=== PATIENT | male | born 1945 | race Hispanic/Latino ===

== ENCOUNTER 2017-11-05 08:22 | Day surgery (SDC) | payer OTHER ==
[~2017-11-05] VITALS: Ht 175.3 cm; Wt 81.9 kg
[~2017-11-05 08:22] MED LIST: ACET-2247 PO; ASPI-1197 PO; ATOR10 PO; DICL4100G TP; FISH1CAP49 PO; MULT-1289 PO; PANT40TA25 PO; SODIUM CHLORIDE 0.9% 1000ML 1,000 ML IV ONE
[2017-11-05 08:45] VITALS: BP 140/82
[2017-11-05] MEDS ORDERED: GARL1000 PO (09:08)
[2017-11-05] MEDS ORDERED: PROPOFOL 10 MG/ML 20ML VIAL IV ONE (09:17)
[2017-11-05 09:33] VITALS: BP 102/56
== END 2017-11-05 10:10 | disposition home or self-care (01) ==
LOC: ENDO 08:22 → DAH 08:22 → ENDO 10:10
PROVIDERS: ATTEND Internal Medicine Gastroenterology
DX: K22.70 Barrett's esophagus without dysplasia (principal); Z86.73 Personal history of transient ischemic attack (TIA), and cerebral infarction without residual deficits; K21.9 Gastro-esophageal reflux disease without esophagitis; Z86.010 Personal history of colon polyps; Z79.899 Other long term (current) drug therapy; Z68.35 Body mass index [BMI] 35.0-35.9, adult; Z98.890 Other specified postprocedural states
CPT/HCPCS: 43239; 88305; 88312; A4606; J2704; J7030

== ENCOUNTER 2020-09-21 06:00 | Inpatient (IN) | payer OTHER ==
[2020-09-17 09:30] LABS: BASOPHILS % (AUTO) 0.8 % (0.0-5.0); EOSINOPHILS % (AUTO) 2.5 % (0.0-8.0); HEMATOCRIT 43.3 % (42-54); LYMPHOCYTES % (AUTO) 47.1 % (21.0-51.0); MEAN CORPUSCULAR HEMOGLOBIN 29.2 pg (27.0-33.0); MEAN CORPUSCULAR HGB CONC 32.8 g/dL (32.0-36.0); MEAN CORPUSCULAR VOLUME 88.9 fL (79-99); MONOCYTES % (AUTO) 9.3 % (3.0-13.0); NEUTROPHILS % (AUTO) 40.1 % (40.0-77.0); PLATELET COUNT (AUTO) 189 K/uL (130-400); RED BLOOD CELL COUNT(AUTO) 4.87 MIL/uL (4.50-6.20); RED CELL DISTRIBUTION WIDTH 12.6 % (11.0-15.5); WHITE BLOOD COUNT (AUTO) 4.8 K/uL (4.8-10.8)
[2020-09-17 09:31] LABS: APPEARANCE,URINE Clear (CLEAR); BILIRUBIN,URINE Negative (NEGATIVE); COLOR,URINE Yellow (YELLOW); GLUCOSE, URINE (UA) Negative (NEGATIVE); KETONES,URINE Negative (NEGATIVE); LEUKOCYTE ESTERASE ,URINE Negative (NEGATIVE); NITRATE,URINE Negative (NEGATIVE); OCCULT BLOOD,URINE Negative (NEGATIVE); PROTEIN,URINE Negative (NEGATIVE); UROBILINOGEN,URINE 0.2 mg/dL (0.2-1.0)
[2020-09-17 09:39] LABS: CREATININE 1.1 mg/dL (0.5-1.5); POTASSIUM 4.3 mmol/L (3.5-5.1)
[2020-09-17 09:42] LABS: INR 1.11 (0.85-1.15)
[2020-09-17 09:44] LABS: PARTIAL THROMBOPLASTIN TIME 32.1 SEC (26.3-35.5)
[~2020-09-21] VITALS: Ht 172.7 cm; Wt 86.2 kg
[2020-09-21] VITALS (8 sets, daily range): BP systolic 95–165; BP diastolic 39–84
[~2020-09-21 06:00] MED LIST changes: -ACET-2247 PO; +ACET-66 PO; -ASPI-1197 PO; -ATOR10 PO; +CYAN500T9 PO; -DICL4100G TP; +FINA5TAB41 PO; -FISH1CAP49 PO; +LISI10TA24 PO; -MULT-1289 PO; -PANT40TA25 PO; +PANT40TA54 PO; +RIVA20TA PO; +ROSU40TA21 PO; -SODIUM CHLORIDE 0.9% 1000ML 1,000 ML IV ONE
[2020-09-21] MEDS ORDERED: 0.9%NACL 1000ML 1,000 ML IV ONE (07:41)
[2020-09-21] MEDS ORDERED: BIVALIRUDIN 250 MG/VIAL IV ONE (09:50)
[2020-09-21] MEDS ORDERED: NITROGLYCERIN 2 MG VIAL IV ONE (09:50)
[2020-09-21] MEDS ORDERED: IOHEXOL 350 MG/ML 100ML INFUS..BTL IV ONE (09:50)
[2020-09-21] MEDS ORDERED: IOHEXOL-350 50ML VIAL IV ONE (09:50)
[2020-09-21] MEDS ORDERED: LIDOCAINE HCL 400MG/20ML VIAL ONE (09:51)
[2020-09-21] MEDS ORDERED: FENTANYL CITRATE PF 50 MCG/1 ML 2ML VIAL ONE (10:47)
[2020-09-21] MEDS ORDERED: HEPARIN 25,000 UNITS/250ML D5W 250 ML IV ONE (12:25)
[2020-09-21] MEDS ORDERED: HEPARIN 10,000 UNIT/10ML (1,000 UNIT/ML) VIAL ONE ×3 (12:26→18:38)
[2020-09-21] MEDS ORDERED: NITROGLYCERIN 50MG/D5W 250ML 1 BOT ONE ×2 (12:41→16:51)
[2020-09-21] MEDS ORDERED: 0.9%NACL 1000ML 1,000 ML IV SCH ×2 (12:45→20:45)
[2020-09-21] MEDS ORDERED: HEPARIN 25,000 UNITS/250ML D5W 250 ML IV SCH (12:45)
[2020-09-21] MEDS ORDERED: NITROGLYCERIN 50MG/D5W 250ML 250 BOT IV SCH ×2 (12:45→20:45)
[2020-09-21] MEDS ORDERED: CEFAZOLIN SODIUM 1 GM VIAL IVP PRN (13:45)
[2020-09-21 16:04] LABS: HEMATOCRIT 39.1 % (42-54); MEAN CORPUSCULAR HEMOGLOBIN 29.2 pg (27.0-33.0); MEAN CORPUSCULAR HGB CONC 33.5 g/dL (32.0-36.0); MEAN CORPUSCULAR VOLUME 87.1 fL (79-99); RED BLOOD CELL COUNT(AUTO) 4.49 MIL/uL (4.50-6.20); RED CELL DISTRIBUTION WIDTH 12.8 % (11.0-15.5); WHITE BLOOD COUNT (AUTO) 6.4 K/uL (4.8-10.8)
[2020-09-21 16:17] LABS: HEMOGLOBIN A1C 6.6 % (4.0-6.0)
[2020-09-21 16:21] LABS: INR 1.06 (0.85-1.15); PROTHROMBIN TIME 11.5 SEC (9.6-11.6)
[2020-09-21 16:24] LABS: ALBUMIN 3.6 g/dL (3.5-5.0); BILIRUBIN,TOTAL 0.6 mg/dL (0.2-1.0); POTASSIUM 3.9 mmol/L (3.5-5.1); TOTAL PROTEIN, SERUM 7.1 g/dL (6.0-8.3)
[2020-09-21] MEDS ORDERED: AMINOCAPROIC ACID 5,000MG VIAL 15,000 MG in 0.9% NACL 500ML IV.SOLN 420 ML IV PRN (16:45)
[2020-09-21] MEDS ORDERED: NOREPINEPHRINE BITARTRATE 8 MG in DEXTROSE 5%-WATER 250 ML IV PRN (16:45)
[2020-09-21] MEDS ORDERED: EPINEPHRINE PF 1MG AMP 10 MG in 0.9% NACL 250ML 240 ML IV PRN (16:45)
[2020-09-21] MEDS ORDERED: CEFAZOLIN SODIUM 1 GM VIAL ONE (16:52)
[2020-09-21] MEDS ORDERED: PAPAVERINE HCL 30 MG/ML 2ML VIAL ONE (16:53)
[2020-09-21 16:58] LABS: PARTIAL THROMBOPLASTIN TIME > 139.0 SEC (26.3-35.5)
[2020-09-21] MEDS ORDERED: NOREPINEPHRINE BITARTRATE 1 MG/1 ML ML IV ONE (18:11)
[2020-09-21] MEDS ORDERED: MIDAZOLAM HCL 1 MG/ML 2ML VIAL ONE (18:11)
[2020-09-21] MEDS ORDERED: FENTANYL CITRATE PF 50 MCG/1 ML 20ML VIAL IJ ONE (18:11)
[2020-09-21] MEDS ORDERED: PROPOFOL 10 MG/ML 20ML VIAL IV ONE (18:11)
[2020-09-21] MEDS ORDERED: ESMOLOL HCL 10 MG/ML 10 ML VIAL ONE (18:11)
[2020-09-21] MEDS ORDERED: PROTAMINE SULFATE 10 MG/ML 25ML VIAL IV ONE (18:11)
[2020-09-21] MEDS ORDERED: EPINEPHRINE PF 1MG AMP ONE (18:11)
[2020-09-21] MEDS ORDERED: AMINOCAPROIC ACID 5,000MG VIAL ONE (18:11)
[2020-09-21] MEDS ORDERED: LIDOCAINE PF 100MG/5ML (2%) SYRINGE 5ML ONE (18:11)
[2020-09-21] MEDS ORDERED: SODIUM BICARB 50MEQ 50ML VIAL 150 ML ONE (18:11)
[2020-09-21] MEDS ORDERED: ROCURONIUM 10MG/1ML SYR 10 MG/ML ML ONE (18:12)
[2020-09-21] MEDS ORDERED: AMIODARONE 150MG VIAL ONE (18:34)
[2020-09-21 18:48] LABS: ABG BASE EXCESS -1.8 mmol/L (-2.0-3.0); ABG HCO3 23.1 mmol/L (21.0-28.0); ABG OXYGEN SATURATION 99.2 % (95.0-99.0); ABG PCO2 40 mmHg (35-48)
[2020-09-21 19:35] LABS: ABG BASE EXCESS 1.6 mmol/L (-2.0-3.0); ABG HCO3 26.5 mmol/L (21.0-28.0); ABG OXYGEN SATURATION 99.3 % (95.0-99.0); ABG PCO2 43 mmHg (35-48)
[2020-09-21] MEDS ORDERED: POTASSIUM CHLORIDE 20MEQ/100ML 300 ML IV ONE (19:37)
[2020-09-21] MEDS ORDERED: PHARMACY COMMUNICATION MISC SCH (20:15)
[2020-09-21 20:23] LABS: ABG BASE EXCESS -6.1 mmol/L (-2.0-3.0); ABG HCO3 19.1 mmol/L (21.0-28.0); ABG PCO2 37 mmHg (35-48)
[2020-09-21] MEDS ORDERED: ATROPINE 1MG SYG IVP ONE (20:25)
[2020-09-21] MEDS ORDERED: SODIUM BICARB 50MEQ 50ML VIAL 250 ML ONE (20:29)
[2020-09-21] MEDS ORDERED: INSULIN REGULAR, HUMAN 3ML 100 UNIT in 0.9%NACL 100ML 99 ML IV SCH ×2 (20:45)
[2020-09-21] MEDS ORDERED: EPINEPHRINE PF 1MG AMP 10 MG in DEXTROSE 5%-WATER 250 ML IV PRN (20:45)
[2020-09-21] MEDS ORDERED: ACETAMINOPHEN 650 MG SUPPOSITORY RC PRN (20:45)
[2020-09-21] MEDS ORDERED: DEXTROSE 50%-WATER 50 ML DISP.SYRIN IV PRN (20:45)
[2020-09-21] MEDS ORDERED: MORPHINE 2 MG SYG IV PRN (20:45)
[2020-09-21] MEDS ORDERED: AMINOCAPROIC ACID 5,000MG VIAL 15,000 MG in 0.9% NACL 250ML 250 ML IV SCH (20:45)
[2020-09-21] MEDS ORDERED: GLUCAGON 1MG KIT 1 MG ML IM PRN (20:45)
[2020-09-21] MEDS ORDERED: CALCIUM GLUC 1GM 1 GM in 0.9%NACL 50ML 50 ML IV PRN (20:45)
[2020-09-21] MEDS ORDERED: ALBUMIN (HUMAN) 5% 250 ML IV PRN (20:45)
[2020-09-21] MEDS ORDERED: 0.9%NACL 10ML VIAL IVP PRN (20:45)
[2020-09-21] MEDS ORDERED: NOREPINEPHRIN 4MG/NS 250ML 250 ML IV PRN (20:45)
[2020-09-21] MEDS ORDERED: PROPOFOL 1000 MG/100 ML 100 ML IV PRN (20:45)
[2020-09-21] MEDS ORDERED: POTASSIUM PHOS 15 mMOL+NS250ML 250 ML IV PRN (20:45)
[2020-09-21] MEDS ORDERED: ACETAMINOPHEN 325 MG TAB PO PRN (20:45)
[2020-09-21] MEDS ORDERED: 0.9% NACL 500ML IV.SOLN 500 ML IV SCH (20:45)
[2020-09-21] MEDS ORDERED: PROPOFOL 1000 MG/100 ML 100 ML IV ONE (21:02)
[2020-09-21 21:46] LABS: HEMATOCRIT 36.9 % (42-54); MEAN CORPUSCULAR HEMOGLOBIN 29.4 pg (27.0-33.0); MEAN CORPUSCULAR HGB CONC 33.6 g/dL (32.0-36.0); MEAN CORPUSCULAR VOLUME 87.4 fL (79-99); RED BLOOD CELL COUNT(AUTO) 4.22 MIL/uL (4.50-6.20); RED CELL DISTRIBUTION WIDTH 12.8 % (11.0-15.5); WHITE BLOOD COUNT (AUTO) 19.4 K/uL (4.8-10.8)
[2020-09-21 21:52] LABS: ABG BASE EXCESS -5.1 mmol/L (-2.0-3.0); ABG HCO3 20.6 mmol/L (21.0-28.0); ABG OXYGEN SATURATION 98.8 % (95.0-99.0); ABG PCO2 41 mmHg (35-48)
[2020-09-21 22:02] LABS: CREATININE 1.1 mg/dL (0.5-1.5); INR 1.13 (0.85-1.15); MAGNESIUM 1.3 mg/dL (1.80-2.40); PHOSPHORUS 4.3 mg/dL (2.5-4.9); POTASSIUM 3.7 mmol/L (3.5-5.1); PROTHROMBIN TIME 12.2 SEC (9.6-11.6)
[2020-09-21 22:04] LABS: PARTIAL THROMBOPLASTIN TIME 21.9 SEC (26.3-35.5)
[2020-09-21] MEDS: SODIUM BICARB 50MEQ 50ML VIAL IV PRN (22:09)
[2020-09-21] MEDS ORDERED: ALBUMIN (HUMAN) 5% 250 ML IV ONE ×2 (23:04→23:15)
[2020-09-21 23:06] LABS: ABG BASE EXCESS 2.9 mmol/L (-2.0-3.0); ABG HCO3 29.5 mmol/L (21.0-28.0); ABG OXYGEN SATURATION 98.5 % (95.0-99.0); ABG PCO2 54 mmHg (35-48)
[2020-09-21] MEDS ORDERED: CALCIUM GLUC 1GM/10ML VIAL IV ONE (23:10)
[2020-09-21] MEDS: MORPHINE 2 MG SYG IV PRN (23:35)
[2020-09-22] VITALS (37 sets, daily range): BP systolic 67–148; BP diastolic 39–107
[2020-09-22] MEDS: FAMOTIDINE 20MG VIAL IV SCH ×3 (00:03→21:09)
[2020-09-22] MEDS: MORPHINE 2 MG SYG IV PRN ×3 (00:30→01:30)
[2020-09-22 00:47] LABS: ABG BASE EXCESS -5.2 mmol/L (-2.0-3.0); ABG HCO3 20.8 mmol/L (21.0-28.0); ABG OXYGEN SATURATION 98.1 % (95.0-99.0); ABG PCO2 42 mmHg (35-48)
[2020-09-22] MEDS: SODIUM BICARB 50MEQ 50ML VIAL IV PRN ×2 (00:59→02:24)
[2020-09-22] MEDS: POTASSIUM CHLORIDE 20MEQ/100ML 100 ML IV PRN ×4 (01:04→06:08)
[2020-09-22 02:01] LABS: ABG BASE EXCESS -0.7 mmol/L (-2.0-3.0); ABG PCO2 40 mmHg (35-48)
[2020-09-22] MEDS ORDERED: CALCIUM GLUC 1GM/10ML VIAL IV ONE ×2 (02:11→04:01)
[2020-09-22] MEDS: CEFAZOLIN SODIUM 1 GM VIAL IV SCH ×3 (02:16→17:49)
[2020-09-22 03:43] LABS: ABG BASE EXCESS 0.6 mmol/L (-2.0-3.0); ABG HCO3 24.6 mmol/L (21.0-28.0); ABG OXYGEN SATURATION 98.2 % (95.0-99.0); ABG PCO2 37 mmHg (35-48)
[2020-09-22 03:53] LABS: MEAN CORPUSCULAR HEMOGLOBIN 29.2 pg (27.0-33.0); MEAN CORPUSCULAR HGB CONC 33.4 g/dL (32.0-36.0); MEAN CORPUSCULAR VOLUME 87.4 fL (79-99); RED BLOOD CELL COUNT(AUTO) 3.66 MIL/uL (4.50-6.20); RED CELL DISTRIBUTION WIDTH 13.1 % (11.0-15.5); WHITE BLOOD COUNT (AUTO) 14.1 K/uL (4.8-10.8)
[2020-09-22 04:05] LABS: CREATININE 1.4 mg/dL (0.5-1.5); MAGNESIUM 1.4 mg/dL (1.80-2.40); PHOSPHORUS 1.1 mg/dL (2.5-4.9); POTASSIUM 3.7 mmol/L (3.5-5.1)
[2020-09-22 04:12] LABS: INR 1.11 (0.85-1.15)
[2020-09-22 04:13] LABS: PARTIAL THROMBOPLASTIN TIME 21.9 SEC (26.3-35.5)
[2020-09-22] MEDS: TRAMADOL HCL 50 MG TABLET PO PRN ×2 (07:36→15:15)
[2020-09-22 07:40] LABS: ABG BASE EXCESS 3.2 mmol/L (-2.0-3.0); ABG HCO3 28.3 mmol/L (21.0-28.0); ABG OXYGEN SATURATION 97.7 % (95.0-99.0); ABG PCO2 45 mmHg (35-48)
[2020-09-22] MEDS ORDERED: FUROSEMIDE 20MG VIAL IV SCH (09:00)
[2020-09-22] MEDS ORDERED: LISINOPRIL 10 MG TABLET PO SCH (09:00)
[2020-09-22] MEDS ORDERED: PANTOPRAZOLE 40 MG TAB DR PO SCH (09:00)
[2020-09-22] MEDS ORDERED: ASPIRIN 81MG CHEW TAB PO SCH (09:00)
[2020-09-22] MEDS: FUROSEMIDE 20 MG TABLET PO SCH ×2 (10:37→17:49)
[2020-09-22] MEDS: ATORVASTATIN 40 MG TABLET PO SCH (10:37)
[2020-09-22] MEDS: ASPIRIN 325MG EC TAB PO SCH (10:37)
[2020-09-22] MEDS: FINASTERIDE 5 MG TABLET PO SCH (10:37)
[2020-09-22] MEDS: ONDANSETRON 4MG INJ IV PRN (10:53)
[2020-09-22] MEDS: MAGNESIUM 2GM PREMIX 50ML 50 ML IV PRN ×2 (11:19→12:29)
[2020-09-22 11:30] LABS: CREATININE 1.2 mg/dL (0.5-1.5); MAGNESIUM 1.3 mg/dL (1.80-2.40); PHOSPHORUS 3.8 mg/dL (2.5-4.9); POTASSIUM 4.4 mmol/L (3.5-5.1)
[2020-09-23] VITALS (16 sets, daily range): BP systolic 84–147; BP diastolic 51–75
[2020-09-23] MEDS: TRAMADOL HCL 50 MG TABLET PO PRN ×3 (02:28→09:57)
[2020-09-23 03:42] LABS: MEAN CORPUSCULAR HEMOGLOBIN 29.1 pg (27.0-33.0); MEAN CORPUSCULAR HGB CONC 32.6 g/dL (32.0-36.0); RED BLOOD CELL COUNT(AUTO) 3.82 MIL/uL (4.50-6.20); RED CELL DISTRIBUTION WIDTH 13.3 % (11.0-15.5); WHITE BLOOD COUNT (AUTO) 15.7 K/uL (4.8-10.8)
[2020-09-23 03:52] LABS: CREATININE 1.3 mg/dL (0.5-1.5); POTASSIUM 4.4 mmol/L (3.5-5.1)
[2020-09-23] MEDS: ATORVASTATIN 40 MG TABLET PO SCH (08:28)
[2020-09-23] MEDS: ASPIRIN 325MG EC TAB PO SCH (08:29)
[2020-09-23] MEDS: FUROSEMIDE 20 MG TABLET PO SCH ×2 (08:29→11:24)
[2020-09-23] MEDS: FINASTERIDE 5 MG TABLET PO SCH (08:29)
[2020-09-23] MEDS ORDERED: METOPROLOL TARTRATE 25 MG TAB PO SCH (09:00)
[2020-09-23] MEDS ORDERED: FUROSEMIDE 20 MG TABLET PO SCH (09:00)
[2020-09-23] MEDS: ENOXAPARIN SODIUM 30 MG/0.3 ML SQ SCH (09:55)
[2020-09-23] MEDS: METOPROLOL TARTRATE 25 MG TAB PO SCH ×2 (11:22→20:42)
[2020-09-23] MEDS ORDERED: POLYETHYLENE GLYCOL 3350 17 GM POWD.PACK PO SCH (17:00)
[2020-09-24] VITALS (8 sets, daily range): BP systolic 110–130; BP diastolic 65–84
[2020-09-24] MEDS: TRAMADOL HCL 50 MG TABLET PO PRN (01:47)
[2020-09-24] MEDS: ONDANSETRON 4MG INJ IV PRN (03:36)
[2020-09-24 03:42] LABS: HEMATOCRIT 29.9 % (42-54); MEAN CORPUSCULAR HEMOGLOBIN 29.6 pg (27.0-33.0); MEAN CORPUSCULAR HGB CONC 33.4 g/dL (32.0-36.0); MEAN CORPUSCULAR VOLUME 88.5 fL (79-99); PLATELET COUNT (AUTO) 123 K/uL (130-400); RED BLOOD CELL COUNT(AUTO) 3.38 MIL/uL (4.50-6.20); RED CELL DISTRIBUTION WIDTH 13.1 % (11.0-15.5); WHITE BLOOD COUNT (AUTO) 9.8 K/uL (4.8-10.8)
[2020-09-24 03:53] LABS: CREATININE 1.3 mg/dL (0.5-1.5); POTASSIUM 4.1 mmol/L (3.5-5.1)
[2020-09-24 06:00] LABS: BASOPHILS % (AUTO) 0.2 % (0.0-5.0); EOSINOPHILS % (AUTO) 2.3 % (0.0-8.0); LYMPHOCYTES % (AUTO) 10.7 % (21.0-51.0); NEUTROPHILS % (AUTO) 79.3 % (40.0-77.0)
[2020-09-24] MEDS: ENOXAPARIN SODIUM 30 MG/0.3 ML SQ SCH (08:42)
[2020-09-24] MEDS: FUROSEMIDE 20 MG TABLET PO SCH (08:43)
[2020-09-24] MEDS: METOPROLOL TARTRATE 25 MG TAB PO SCH ×2 (08:43→20:38)
[2020-09-24] MEDS: ATORVASTATIN 40 MG TABLET PO SCH (08:43)
[2020-09-24] MEDS: FINASTERIDE 5 MG TABLET PO SCH (08:43)
[2020-09-24] MEDS: ASPIRIN 325MG EC TAB PO SCH (08:44)
[2020-09-24] MEDS: DOCUSATE SODIUM 100 MG CAP PO SCH ×2 (13:45→20:38)
[2020-09-24] MEDS: METOCLOPRAMIDE 10 MG/2 ML VIAL IVP SCH ×3 (13:45→23:08)
[2020-09-24] MEDS ORDERED: POLYETHYLENE GLYCOL 3350 17 GM POWD.PACK PO SCH (17:00)
[2020-09-25] VITALS (12 sets, daily range): BP systolic 108–130; BP diastolic 54–77
[2020-09-25 06:01] LABS: BASOPHILS % (AUTO) 0.2 % (0.0-5.0); EOSINOPHILS % (AUTO) 0.2 % (0.0-8.0); HEMATOCRIT 30.4 % (42-54); LYMPHOCYTES % (AUTO) 25.7 % (21.0-51.0); MEAN CORPUSCULAR HEMOGLOBIN 28.2 pg (27.0-33.0); MEAN CORPUSCULAR HGB CONC 32.2 g/dL (32.0-36.0); MEAN CORPUSCULAR VOLUME 87.6 fL (79-99); MONOCYTES % (AUTO) 13.2 % (3.0-13.0); NEUTROPHILS % (AUTO) 60.4 % (40.0-77.0); PLATELET COUNT (AUTO) 182 K/uL (130-400); RED BLOOD CELL COUNT(AUTO) 3.47 MIL/uL (4.50-6.20); RED CELL DISTRIBUTION WIDTH 12.8 % (11.0-15.5)
[2020-09-25 06:08] LABS: CREATININE 1.1 mg/dL (0.5-1.5); POTASSIUM 3.2 mmol/L (3.5-5.1)
[2020-09-25] MEDS: METOCLOPRAMIDE 10 MG/2 ML VIAL IVP SCH ×3 (07:12→17:48)
[2020-09-25] MEDS: POTASSIUM CHLORIDE 20MEQ/100ML 100 ML IV PRN (09:39)
[2020-09-25] MEDS: ENOXAPARIN SODIUM 30 MG/0.3 ML SQ SCH (09:39)
[2020-09-25] MEDS: FUROSEMIDE 20 MG TABLET PO SCH ×2 (09:40→20:19)
[2020-09-25] MEDS: FINASTERIDE 5 MG TABLET PO SCH (09:41)
[2020-09-25] MEDS: ASPIRIN 325MG EC TAB PO SCH (09:41)
[2020-09-25] MEDS: METOPROLOL TARTRATE 25 MG TAB PO SCH ×2 (09:41→20:18)
[2020-09-25] MEDS: DOCUSATE SODIUM 100 MG CAP PO SCH ×2 (09:41→20:21)
[2020-09-25] MEDS: ATORVASTATIN 40 MG TABLET PO SCH (09:41)
[2020-09-25] MEDS ORDERED: KCL 20 MEQ ERTAB PO SCH (10:15)
[2020-09-25 14:10] LABS: CREATININE 1.1 mg/dL (0.5-1.5); POTASSIUM 3.6 mmol/L (3.5-5.1)
[2020-09-25] MEDS ORDERED: POTASSIUM CHLORIDE 10% ELIXIR 20 MEQ/15 ML UDCUP PO PRN (20:15)
[2020-09-25] MEDS ORDERED: POTASSIUM CHLORIDE 20MEQ/100ML 100 ML IV PRN (20:15)
[2020-09-25] MEDS ORDERED: LIDOCAINE HCL-MPF 1% 2ML VIAL IV PRN (20:15)
[2020-09-25] MEDS ORDERED: KCL 20 MEQ ERTAB PO ONE (20:16)
[2020-09-26 02:00] VITALS: BP 126/76
[2020-09-26 03:00] VITALS: BP_SYST 130; BP_SYST 180; BP_DIAS 77
[2020-09-26 03:59] LABS: POTASSIUM 3.5 mmol/L (3.5-5.1)
[2020-09-26] MEDS: KCL 20 MEQ ERTAB PO PRN ×2 (04:50→06:37)
[2020-09-26 05:00] VITALS: BP 129/54
[2020-09-26 06:00] LABS: BASOPHILS % (AUTO) 0.1 % (0.0-5.0); EOSINOPHILS % (AUTO) 0.1 % (0.0-8.0); HEMATOCRIT 29.1 % (42-54); LYMPHOCYTES % (AUTO) 20.4 % (21.0-51.0); MEAN CORPUSCULAR HEMOGLOBIN 29.1 pg (27.0-33.0); MEAN CORPUSCULAR VOLUME 85.6 fL (79-99); MONOCYTES % (AUTO) 13.2 % (3.0-13.0); PLATELET COUNT (AUTO) 202 K/uL (130-400); RED CELL DISTRIBUTION WIDTH 12.6 % (11.0-15.5)
[2020-09-26 08:00] VITALS: BP 129/69
[2020-09-26] MEDS: ASPIRIN 325MG EC TAB PO SCH (08:53)
[2020-09-26] MEDS: ATORVASTATIN 40 MG TABLET PO SCH (08:53)
[2020-09-26] MEDS: ENOXAPARIN SODIUM 30 MG/0.3 ML SQ SCH ×2 (08:53→09:59)
[2020-09-26] MEDS: FUROSEMIDE 20 MG TABLET PO SCH (08:54)
[2020-09-26] MEDS: DOCUSATE SODIUM 100 MG CAP PO SCH (08:54)
[2020-09-26] MEDS: FINASTERIDE 5 MG TABLET PO SCH (08:54)
[2020-09-26] MEDS: METOPROLOL TARTRATE 25 MG TAB PO SCH (08:54)
[2020-09-26] MEDS ORDERED: AEC81 PO (10:08)
[2020-09-26] MEDS ORDERED: METO25 PO (10:09)
[2020-09-26] MEDS ORDERED: FURO20TA6 PO (10:09)
[2020-09-26] MEDS ORDERED: KCL 20 MEQ ERTAB PO SCH (10:42)
[2020-09-26 12:00] VITALS: BP 136/79
[2020-09-26] MEDS ORDERED: POTA-79 PO (12:45)
[2020-09-26 14:30] VITALS: BP 130/74
== END 2020-09-26 15:48 | disposition home or self-care (01) | DRG 234 ==
LOC: DAH 06:00 → DAHIP 06:01 → DAH 06:01 → 2CH 15:15
PROVIDERS: ADMIT Internal Medicine; ATTEND Internal Medicine
PROC: 06BQ4ZZ Excision of Left Saphenous Vein, Percutaneous Endoscopic Approach (ICD-10-PCS; 2020-09-21)
PROC: 06BP4ZZ Excision of Right Saphenous Vein, Percutaneous Endoscopic Approach (ICD-10-PCS; 2020-09-21)
PROC: 5A02110 Assistance with Cardiac Output using Balloon Pump, Intermittent (ICD-10-PCS; 2020-09-21)
PROC: B2111ZZ Fluoroscopy of Multiple Coronary Arteries using Low Osmolar Contrast (ICD-10-PCS; 2020-09-21)
PROC: B2151ZZ Fluoroscopy of Left Heart using Low Osmolar Contrast (ICD-10-PCS; 2020-09-21)
PROC: 4A023N7 Measurement of Cardiac Sampling and Pressure, Left Heart, Percutaneous Approach (ICD-10-PCS; principal; 2020-09-21 18:12)
PROC: 02100Z9 Bypass Coronary Artery, One Artery from Left Internal Mammary, Open Approach (ICD-10-PCS; 2020-09-21 18:12)
PROC: 021109W Bypass Coronary Artery, Two Arteries from Aorta with Autologous Venous Tissue, Open Approach (ICD-10-PCS; 2020-09-21 18:12)
DX: I25.10 Atherosclerotic heart disease of native coronary artery without angina pectoris (principal); D68.59 Other primary thrombophilia; J90 Pleural effusion, not elsewhere classified; I48.0 Paroxysmal atrial fibrillation; E78.00 Pure hypercholesterolemia, unspecified; E11.9 Type 2 diabetes mellitus without complications; I10 Essential (primary) hypertension; K21.9 Gastro-esophageal reflux disease without esophagitis; E78.5 Hyperlipidemia, unspecified; N40.0 Benign prostatic hyperplasia without lower urinary tract symptoms; Z79.82 Long term (current) use of aspirin; Z79.01 Long term (current) use of anticoagulants; Z79.84 Long term (current) use of oral hypoglycemic drugs; Z79.899 Other long term (current) drug therapy; Z85.46 Personal history of malignant neoplasm of prostate; Z83.3 Family history of diabetes mellitus; Z80.9 Family history of malignant neoplasm, unspecified; Z82.0 Family history of epilepsy and other diseases of the nervous system; Z82.49 Family history of ischemic heart disease and other diseases of the circulatory system; J98.4 Other disorders of lung
CPT/HCPCS: 33967; 36415; 36600; 71045; 80048; 80053; 80061; 81003; 82435; 82803; 82947; 82948; 83036; 83605; 83735; 83880; 84100; 84132; 84295; 85018; 85025; 85027; 85347; 85384; 85610; 85730; 86850; 86900; 86901; 86923; 93005; 93458; 93880; 94002; 94003; 94010; 94150; 97039; 99156; 99157; A4357; A4606; A7048; C1894; G0378; J0171; J0282; J0461; J0583; J0610; J0690; J1644; J1650; J1815; J2001; J2250; J2405; J2440; J2704; J2720; J2765; J3010; J3475; J3480; J3490; J7030; J7040; J7050; J7060; J7120; P9045; Q9967

== ENCOUNTER → 2021-11-22 | Outpatient (CLI) | payer OTHER ==
[~2021-11-22] MED LIST changes: -ACET-66 PO; +AEC81 PO; +CLOP75TA14 PO; +ENOX30DI4 SQ; +FURO20TA6 PO; -LISI10TA24 PO; +METO25 PO; +POTA-79 PO; +SILD20TA14 PO
== END ==
LOC: SHCH 15:31
PROVIDERS: ATTEND Internal Medicine Cardiovascular Disease
DX: I73.9 Peripheral vascular disease, unspecified (principal)
CPT/HCPCS: 93925

== ENCOUNTER 2021-11-24 06:43 | Observation (INO) | payer OTHER ==
[2021-11-22 10:43] LABS: APPEARANCE,URINE Clear (CLEAR); BILIRUBIN,URINE Negative (NEGATIVE); COLOR,URINE Yellow (YELLOW); GLUCOSE, URINE (UA) Negative (NEGATIVE); KETONES,URINE Negative (NEGATIVE); LEUKOCYTE ESTERASE ,URINE Negative (NEGATIVE); NITRATE,URINE Negative (NEGATIVE); OCCULT BLOOD,URINE Negative (NEGATIVE); PROTEIN,URINE Negative (NEGATIVE)
[2021-11-22 11:22] LABS: BASOPHILS % (AUTO) 0.5 % (0.0-5.0); EOSINOPHILS % (AUTO) 2.1 % (0.0-8.0); HEMATOCRIT 42.1 % (42-54); LYMPHOCYTES % (AUTO) 33.9 % (21.0-51.0); MEAN CORPUSCULAR HEMOGLOBIN 28.5 pg (27.0-33.0); MEAN CORPUSCULAR HGB CONC 32.5 g/dL (32.0-36.0); MEAN CORPUSCULAR VOLUME 87.7 fL (79-99); NEUTROPHILS % (AUTO) 55.2 % (40.0-77.0); PLATELET COUNT (AUTO) 236 K/uL (130-400); WHITE BLOOD COUNT (AUTO) 6.2 K/uL (4.8-10.8)
[2021-11-22 11:28] LABS: CREATININE 0.9 mg/dL (0.5-1.5); POTASSIUM 4.1 mmol/L (3.5-5.1)
[2021-11-22 11:31] LABS: INR 1.03 (0.85-1.15); PROTHROMBIN TIME 11.2 SEC (9.6-11.6)
[2021-11-22 12:30] LABS: B-TYPE NATRIURETIC PEPTIDE 437 pg/mL (0-100)
[2021-11-23 10:50] VITALS: BP 165/82
[~2021-11-24] VITALS: Ht 172.7 cm; Wt 81.2 kg
[~2021-11-24 06:43] MED LIST changes: -AEC81 PO; -CLOP75TA14 PO; -ENOX30DI4 SQ; -FURO20TA6 PO; -POTA-79 PO
[2021-11-24 07:00] VITALS: BP 153/83
[2021-11-24] MEDS ORDERED: 0.9%NACL 1000ML 1,000 ML IV ONE (07:19)
[2021-11-24] MEDS ORDERED: BIVALIRUDIN 250 MG/VIAL IV ONE ×3 (08:30→11:00)
[2021-11-24] MEDS ORDERED: LIDOCAINE HCL 1% 20 ML VIAL ONE (08:30)
[2021-11-24] MEDS ORDERED: NITROGLYCERIN 50MG VIAL ONE (08:30)
[2021-11-24] MEDS ORDERED: MIDAZOLAM HCL 1 MG/ML 2ML VIAL ONE (08:31)
[2021-11-24] MEDS ORDERED: IOHEXOL-350 50ML VIAL IV ONE ×2 (08:31→09:36)
[2021-11-24] MEDS ORDERED: IOHEXOL 350 MG/ML 100ML INFUS..BTL IV ONE (08:31)
[2021-11-24] MEDS ORDERED: FENTANYL CITRATE PF 50 MCG/1 ML 2ML VIAL ONE (08:31)
[2021-11-24] MEDS ORDERED: IOHEXOL-350 75 ML VIAL IV ONE ×3 (08:55→10:49)
[2021-11-24] MEDS ORDERED: CLOPIDOGREL 300MG TAB ONE (09:53)
[2021-11-24] MEDS ORDERED: ASPIRIN 325MG EC TAB PO ONE (09:53)
[2021-11-24] MEDS ORDERED: HYDRALAZINE 20MG/ML VIAL ONE (10:02)
[2021-11-24] MEDS ORDERED: ATROPINE 1MG SYG IVP ONE (10:23)
[2021-11-24] MEDS ORDERED: PHENYLEPHRINE HCL 10 MG/ML 1ML VIAL IV ONE (10:41)
[2021-11-24] MEDS ORDERED: EPINEPHRINE PF 1MG AMP ONE (10:41)
[2021-11-24] MEDS ORDERED: ONDANSETRON 4MG INJ ONE ×2 (10:42→11:49)
[2021-11-24] MEDS ORDERED: 0.9%NACL 1000ML 1,000 ML IV SCH (12:00)
[2021-11-24] MEDS ORDERED: SILDENAFIL CITRATE 20 MG TABLET PO SCH (12:00)
[2021-11-24 12:30] VITALS: BP 101/68
[2021-11-24 19:00] VITALS: BP_SYST 110; BP_SYST 119; BP_DIAS 56; BP_DIAS 58
[2021-11-24 20:56] VITALS: BP 108/59
[2021-11-24] MEDS: CARVEDILOL 6.25 MG TABLET PO SCH (21:00)
[2021-11-24] MEDS ORDERED: METOPROLOL TARTRATE 25 MG TAB PO SCH (21:00)
[2021-11-24] MEDS: SACUBITRIL/VALSARTAN 1 EACH TABLET PO SCH (21:00)
[2021-11-24] MEDS ORDERED: 0.9% NACL 250ML 250 ML IV SCH (22:00)
[2021-11-24] MEDS ORDERED: PHARMACY COMMUNICATION MISC SCH (22:00)
[2021-11-25 00:46] VITALS: BP 112/65
[2021-11-25 04:00] VITALS: BP 106/57
[2021-11-25 04:07] LABS: HEMATOCRIT 35.4 % (42-54); MEAN CORPUSCULAR HEMOGLOBIN 29.1 pg (27.0-33.0); MEAN CORPUSCULAR HGB CONC 33.6 g/dL (32.0-36.0); MEAN CORPUSCULAR VOLUME 86.6 fL (79-99); RED BLOOD CELL COUNT(AUTO) 4.09 MIL/uL (4.50-6.20); RED CELL DISTRIBUTION WIDTH 13.3 % (11.0-15.5); WHITE BLOOD COUNT (AUTO) 8.7 K/uL (4.8-10.8)
[2021-11-25 07:00] VITALS: BP 123/65
[2021-11-25] MEDS ORDERED: AEC81 PO (07:41)
[2021-11-25] MEDS ORDERED: CLOP75TA14 PO (07:41)
[2021-11-25] MEDS ORDERED: ENOX30DI4 SQ (07:41)
[2021-11-25] MEDS: CARVEDILOL 6.25 MG TABLET PO SCH (08:03)
[2021-11-25] MEDS: SACUBITRIL/VALSARTAN 1 EACH TABLET PO SCH (08:03)
[2021-11-25] MEDS ORDERED: ASPIRIN 81MG CHEW TAB PO SCH (09:00)
[2021-11-25] MEDS ORDERED: ENOXAPARIN SODIUM 30 MG/0.3 ML SQ SCH (09:00)
[2021-11-25] MEDS ORDERED: ATORVASTATIN 40 MG TABLET PO SCH (09:00)
[2021-11-25] MEDS ORDERED: CYANOCOBALAMIN (VITAMIN B-12) 1,000 MCG TABLET PO SCH (09:00)
[2021-11-25] MEDS ORDERED: FINASTERIDE 5 MG TABLET PO SCH (09:00)
[2021-11-25] MEDS ORDERED: PANTOPRAZOLE 40 MG TAB DR PO SCH (09:00)
[2021-11-25] MEDS ORDERED: CLOPIDOGREL 75MG TAB PO SCH (09:00)
[2021-11-25] MEDS ORDERED: IOHEXOL-350 75 ML VIAL IV ONE (09:32)
[2021-11-25 11:00] VITALS: BP 119/63
[2021-11-25 16:00] VITALS: BP 146/76
== END 2021-11-25 18:20 | disposition critical access hospital (66) ==
LOC: DAH 06:43 → DAHIP 06:44 → DAH 06:44 → 2DH 12:30
PROVIDERS: ADMIT Internal Medicine Cardiovascular Disease; ATTEND Internal Medicine Cardiovascular Disease
DX: I25.10 Atherosclerotic heart disease of native coronary artery without angina pectoris (principal); Z20.822 Contact with and (suspected) exposure to COVID-19; I48.0 Paroxysmal atrial fibrillation; I10 Essential (primary) hypertension; E11.9 Type 2 diabetes mellitus without complications; I25.810 Atherosclerosis of coronary artery bypass graft(s) without angina pectoris; I25.5 Ischemic cardiomyopathy; E78.5 Hyperlipidemia, unspecified; G51.0 Bell's palsy; I63.9 Cerebral infarction, unspecified; I73.9 Peripheral vascular disease, unspecified; K21.9 Gastro-esophageal reflux disease without esophagitis; R94.39 Abnormal result of other cardiovascular function study; Z79.01 Long term (current) use of anticoagulants; Z86.73 Personal history of transient ischemic attack (TIA), and cerebral infarction without residual deficits; Z79.899 Other long term (current) drug therapy; Z98.890 Other specified postprocedural states; Z79.82 Long term (current) use of aspirin
CPT/HCPCS: 36415 ×2; 70450; 70496; 70498; 70551; 71045; 80048 ×2; 80061; 81003; 83880; 85025; 85027; 85610; 85730; 87635; 93005; 93459; 96372; A4215; A4216; A4221; A4222; A4223 ×3; A4344; A4606; A4663; C1725 ×3; C1760 ×2; C1769 ×3; C1874 ×2; C1887 ×3; C1894 ×3; C9600; G0378 ×28; J0360; J0461; J0583 ×3; J1644 ×3; J1650; J2250; J2405 ×2; J3010; J3490; J7030; J7050; Q9965 ×2; Q9967 ×7; 99156; 99157; J0171; J2370

== ENCOUNTER → 2022-12-20 | Outpatient (CLI) | payer OTHER ==
[~2022-12-20] MED LIST changes: +AEC81 PO; +CLOP-31 PO; -CYAN500T9 PO; +ENOX30DI4 SQ; -METO25 PO; -RIVA20TA PO; -SILD20TA14 PO
[2022-12-20 12:22] LABS: ALBUMIN 4.3 g/dL (3.5-5.0); BILIRUBIN,DIRECT 0.1 mg/dL (0.0-0.3); TOTAL PROTEIN, SERUM 7.8 g/dL (6.0-8.3)
== END | disposition home or self-care (01) ==
LOC: LAB 08:14
PROVIDERS: ATTEND Internal Medicine Cardiovascular Disease
DX: E78.5 Hyperlipidemia, unspecified (principal)
CPT/HCPCS: 36415; 80061; 80076

== ENCOUNTER → 2023-04-11 | Outpatient (CLI) | payer OTHER ==
[2023-04-11 12:32] LABS: CHOLESTEROL 116 mg/dL (<200); HDL CHOLESTEROL 47 mg/dL (29-71); LDL DIRECT 50 mg/dL (0-99); TRIGLYCERIDES 84 mg/dL (30-200)
[2023-04-11 13:00] LABS: HEMOGLOBIN A1C 7.5 % (4.0-6.0)
== END | disposition home or self-care (01) ==
LOC: LAB 12-27 11:08
PROVIDERS: ATTEND Internal Medicine Cardiovascular Disease
DX: E78.5 Hyperlipidemia, unspecified (principal); E11.9 Type 2 diabetes mellitus without complications
CPT/HCPCS: 36415; 80061; 83036